=== PATIENT | male | born 1955 | race Two or more races ===

== ENCOUNTER 2017-06-07 00:27 | Emergency (ER) | payer OTHER ==
[~2017-06-07] VITALS: Ht 170.2 cm; Wt 71.2 kg
[2017-06-07 01:04] VITALS: BP 128/83
[2017-06-07] MEDS ORDERED: Lidocaine 2% Visc 15ml soln ORAL ONE (01:30)
[2017-06-07] MEDS ORDERED: Mylanta II UD 30ml ORAL ONE (01:30)
[2017-06-07] MEDS ORDERED: NEXIUM40 MG ORAL (02:01)
--- NOTE | 2017-06-07 02:02 | Emergency Room Report ---
History of Present Illness General Chief Complaint: Dizziness Source: Patient Present Illness HPI This is a 61-year-old male with history HIV. Also history of endoscopy confirm that she goes to disease. He was prescribe Nexium but he said he did not take him. Complaining of epigastric pain. His been a chronic issue for him. He said he went to [facility] before and they gave her morphine shot. He is requesting the same thing here. No nausea no vomiting. No fever or chills. Worse with eating. Denies any other complaint. No chest pain. Allergies: Coded Allergies: DOXYCYCLINE (Verified Allergy, Severe, HIVES, 09/30/11) TETRACYCLINE (Verified Allergy, Severe, HIVES, 09/30/11) AMOXICILLIN (Verified Allergy, Unknown, 08/25/15) SULFAMETHOXAZOLE (Verified Allergy, Unknown, 08/25/15) TRIMETHOPRIM (Verified Allergy, Unknown, 08/25/15) Patient History Past Medical History: see triage record, old chart reviewed, HIV Past Surgical History: other Pertinent Family History: none Social History: Denies: smoking Immunizations: other Reviewed Nursing Documentation: PMH: Agreed, PSxH: Agreed Nursing Documentation-PMH Hx Hypertension: No Hx Pacemaker: No Hx Asthma: No Hx COPD: No Hx Diabetes: No Hx Gastrointestinal Problems: No Hx Dialysis: No Hx Neurological Problems: No Hx Cerebrovascular Accident: No Hx Seizures: No Review of Systems Eye: Denies: eye pain, blurred vision ENT: Denies: ear pain, nose congestion, throat swelling Respiratory: Denies: cough, shortness of breath Cardiovascular: Denies: chest pain, palpitations Gastrointestinal: Reports: abdominal pain, Denies: diarrhea, nausea, vomiting Musculoskeletal: Denies: back pain, joint pain Skin: Denies: rash Neurological: Denies: headache, numbness Endocrine: Denies: increased thirst, increased urine Hematologic/Lymphatic: Denies: easy bruising All Other Systems: negative except mentioned in HPI Physical Exam Vital Signs Date Time Temp Pulse Resp B/P (MAP) Pulse Ox O2 Delivery O2 Flow Rate FiO2 06/07/17 00:28 97.5 78 16 129/89 95 Room Air vitals normal Sp02 EP Interpretation: reviewed, normal General Appearance: well appearing, no apparent distress, alert Head: normocephalic, atraumatic Eyes: bilateral eye PERRL, bilateral eye EOMI ENT: hearing grossly normal, normal pharynx Neck: full range of motion, supple, no meningismus Respiratory: chest non-tender, lungs clear, normal breath sounds Cardiovascular #1: regular rate, rhythm, no murmur Gastrointestinal: normal bowel sounds, non tender, no mass, no organomegaly, no bruit, non-distended Musculoskeletal: back normal, gait/station normal, normal range of motion Psychiatric: mood/affect normal Skin: warm/dry Medical Decision Making Diagnostic Impression: Primary Impression: Gastritis Qualified Codes: K29.00 - Acute gastritis without bleeding ER Course Patient with epigastric abdominal pain secondary to peptic ulcer disease. He has confirm endoscopy of the same before. This is the same presentation. I see no evidence of ACS, PE, dissection to name a few. We'll discharge home. We 'll put him back on Nexium. Last Vital Signs Date Time Temp Pulse Resp B/P (MAP) Pulse Ox O2 Delivery O2 Flow Rate FiO2 06/07/17 01:04 97.5 65 16 128/83 98 Room Air Status: improved Disposition: HOME, SELF-CARE Condition: Stable Scripts Esomeprazole Magnesium (NEXIUM) 40 Mg Capsule. 40 MG ORAL DAILY, #30 CAP Prov: KIA MELLO M.D. 06/07/17 Additional Instructions: Followup with your DrUmair in 7 days. Return if symptom worsen. KIA MELLO M.D. Jun 07, 2017 02:02
[2017-06-07 02:15] VITALS: BP 128/83
== END 2017-06-07 02:15 | disposition home or self-care (01) ==
LOC: EMR 00:47
DX: K29.00 Acute gastritis without bleeding (principal); Z88.2 Allergy status to sulfonamides; Z88.8 Allergy status to other drugs, medicaments and biological substances
CPT/HCPCS: 99284

== ENCOUNTER 2018-04-10 05:26 | Emergency (ER) | payer OTHER ==
[~2018-04-10] VITALS: Ht 167.6 cm; Wt 68.0 kg
[~2018-04-10 05:26] MED LIST: NEXIUM40 MG ORAL
[2018-04-10] MEDS ORDERED: TRUVADA 200 MG1 EAC1 ORAL (05:32)
[2018-04-10] MEDS ORDERED: ISENTRESS25 MG ORAL (05:32)
[2018-04-10 05:37] VITALS: BP 137/90
--- NOTE | 2018-04-10 05:40 | Emergency Room Report ---
History of Present Illness General Chief Complaint: General Complaint Source: Patient, Medical Record, EMS Present Illness HPI Is a 62-year-old male with history of HIV. He is taking his medication compliantly. He presents with palpitation and anxiety. He said this occurred around 3 hours ago after smoking marijuana. He does not know if it was laced with cocaine or methamphetamine. Denies any chest pain. [place] his heart beating fast. No nausea no vomiting. No syncope. Nothing made it better. Nothing made it worse. Never had this problem before. Not suicidal or homicidal. Allergies: Coded Allergies: DOXYCYCLINE (Verified Allergy, Severe, HIVES, 09/30/11) TETRACYCLINE (Verified Allergy, Severe, HIVES, 09/30/11) AMOXICILLIN (Verified Allergy, Unknown, 08/25/15) SULFAMETHOXAZOLE (Verified Allergy, Unknown, 08/25/15) TRIMETHOPRIM (Verified Allergy, Unknown, 08/25/15) Patient History Past Medical History: see triage record, old chart reviewed, HIV Past Surgical History: other Pertinent Family History: none Social History: Reports: smoking, drug use Immunizations: other Reviewed Nursing Documentation: PMH: Agreed; PSxH: Agreed Nursing Documentation-PMH Hx Hypertension: No Hx Pacemaker: No Hx Asthma: No Hx COPD: No Hx Diabetes: No Hx Gastrointestinal Problems: No Hx Dialysis: No Hx Neurological Problems: No Hx Cerebrovascular Accident: No Hx Seizures: No Review of Systems Eye: Denies: eye pain, blurred vision ENT: Denies: ear pain, nose congestion, throat swelling Respiratory: Denies: cough, shortness of breath Cardiovascular: Reports: palpitations; Denies: chest pain Gastrointestinal: Denies: abdominal pain, diarrhea, nausea, vomiting Musculoskeletal: Denies: back pain, joint pain Skin: Denies: rash Neurological: Denies: headache, numbness Endocrine: Denies: increased thirst, increased urine Hematologic/Lymphatic: Denies: easy bruising All Other Systems: negative except mentioned in HPI Physical Exam Vital Signs Date Time Temp Pulse Resp B/P (MAP) Pulse Ox O2 Delivery O2 Flow Rate FiO2 04/10/18 05:28 97.1 155 14 149/93 95 Room Air 97.2 vitals with tachycardia Sp02 EP Interpretation: reviewed, normal General Appearance: well appearing, no apparent distress, alert Head: normocephalic, atraumatic Eyes: bilateral eye PERRL, bilateral eye EOMI ENT: hearing grossly normal, normal pharynx Neck: full range of motion, supple, no meningismus Respiratory: chest non-tender, lungs clear, normal breath sounds Cardiovascular #1: regular rate, rhythm, no murmur, tachycardia Gastrointestinal: normal bowel sounds, non tender, no mass, no organomegaly, no bruit, non-distended Musculoskeletal: back normal, gait/station normal, normal range of motion Psychiatric: anxious Skin: warm/dry Medical Decision Making Diagnostic Impression: Primary Impression: Anxiety Additional Impressions: Palpitations Substance abuse ER Course Patient with anxiety secondary to drug abuse. Heart rate much improved. Patient's much calmer. We'll discharge home if labs unremarkable. labs are unremarkable. Drug screen positive for cocaine and amphetamine. better now. will dc home. EKG Diagnostic Results Rate: tachycardiac Rhythm: NSR ST Segments: no acute changes Rhythm Strip Diag. Results Rhythm Strip Time: 06:22 EP Interpretation: yes Rate: 105 Rhythm: NSR, no PVC's, no ectopy Last Vital Signs Date Time Temp Pulse Resp B/P (MAP) Pulse Ox O2 Delivery O2 Flow Rate FiO2 04/10/18 05:28 97.1 155 14 149/93 95 Room Air 97.2 Status: improved Disposition: HOME, SELF-CARE Condition: Stable Additional Instructions: Abstain from drug use. Follow-up with your doctor in 7 days. Return if worse. KIA MELLO M.D. Apr 10, 2018 05:40
[2018-04-10] MEDS ORDERED: LORazepam Inj 2mg/ml 1ml IV ONE (05:45)
[2018-04-10] MEDS ORDERED: LORazepam Inj 2mg/ml 1ml ONE (05:46)
[2018-04-10 06:07] LABS: BASOPHILS % (AUTO) 0.6 % (0.0-2.0); EOSINOPHILS % (AUTO) 0.1 % (0.0-3.0); HEMATOCRIT 43.1 % (42.0-52.0); HEMOGLOBIN 14.2 G/DL (14.2-18.0); LYMPHOCYTES % (AUTO) 12.6 % (20.0-45.0); MEAN CORPUSCULAR VOLUME 90 FL (80-99); NEUTROPHILS % (AUTO) 81.7 % (45.0-75.0); PLATELET COUNT 203 K/UL (150-450); RED BLOOD COUNT 4.79 M/UL (4.70-6.10); RED CELL DISTRIBUTION WIDTH 11.3 % (11.6-14.8); WHITE BLOOD COUNT 8.6 K/UL (4.8-10.8)
[2018-04-10 06:22] LABS: ANION GAP 10 mmol/L (5-15); APPEARANCE,URINE CLEAR; BILIRUBIN, URINE NEGATIVE (NEGATIVE); BLOOD UREA NITROGEN 16 mg/dL (7-18); CARBON DIOXIDE 26 MMOL/L (21-32); CHLORIDE 106 MMOL/L (98-107); CREATININE 0.9 MG/DL (0.55-1.30); GLUCOSE, URINE (UA) NEGATIVE (NEGATIVE); KETONES,URINE NEGATIVE (NEGATIVE); LEUKOCYTE ESTERASE ,URINE NEGATIVE (NEGATIVE); NITRITE,URINE NEGATIVE (NEGATIVE); PH,URINE 6 (4.5-8.0); POTASSIUM 3.7 MMOL/L (3.5-5.1); PROTEIN,URINE 1+ (NEGATIVE); SODIUM 142 MMOL/L (136-145); UROBILINOGEN,URINE NORMAL MG/DL (0.0-1.0)
[2018-04-10 06:28] LABS: COLOR,URINE YELLOW
[2018-04-10 06:37] LABS: CKMB 4.4 NG/ML (0.0-3.6); CREATINE KINASE 607 U/L (26-308)
[2018-04-10 06:44] VITALS: BP 134/83
[2018-04-10 06:46] VITALS: BP 134/83
== END 2018-04-10 06:47 | disposition home or self-care (01) ==
LOC: EDBD 05:26 → EMR 05:39
DX: F41.9 Anxiety disorder, unspecified (principal); R00.2 Palpitations; F12.10 Cannabis abuse, uncomplicated
CPT/HCPCS: 36415; 80048; 80307; 81001; 81003; 82550; 82553; 84484; 85025; 93005; 96361; 96374; 99284

== ENCOUNTER 2018-08-18 23:14 | Emergency (ER) | payer OTHER ==
[~2018-08-18] VITALS: Ht 170.2 cm; Wt 65.8 kg
[~2018-08-18 23:14] MED LIST changes: +ISENTRESS25 MG ORAL; +TRUVADA 200 MG1 EAC1 ORAL
[2018-08-18 23:30] VITALS: BP 132/78
[2018-08-18] MEDS ORDERED: Morphine Sulfate 4mg/ml Inj (IV/IM USE ONLY) IVP ONE (23:45)
[2018-08-18] MEDS ORDERED: Ketorolac 30mg Inj IV ONE (23:45)
[2018-08-19 00:13] LABS: APPEARANCE,URINE SLIGHTLY CLOUDY; BILIRUBIN, URINE NEGATIVE (NEGATIVE); COLOR,URINE PALE YELLOW; GLUCOSE, URINE (UA) NEGATIVE (NEGATIVE); HEMATOCRIT 37.3 % (42.0-52.0); KETONES,URINE NEGATIVE (NEGATIVE); LEUKOCYTE ESTERASE ,URINE 2+ (NEGATIVE); MEAN CORPUSCULAR VOLUME 87 FL (80-99); NITRITE,URINE NEGATIVE (NEGATIVE); PH,URINE 7 (4.5-8.0); PLATELET COUNT 232 K/UL (150-450); PROTEIN,URINE NEGATIVE (NEGATIVE); RED BLOOD COUNT 4.29 M/UL (4.70-6.10); RED CELL DISTRIBUTION WIDTH 11.4 % (11.6-14.8); UROBILINOGEN,URINE NORMAL MG/DL (0.0-1.0); WHITE BLOOD COUNT 18.3 K/UL (4.8-10.8)
[2018-08-19] MEDS ORDERED: Metoclopramide 10mg/2ml Inj IVP ONE (00:15)
[2018-08-19 00:22] LABS: ANION GAP 8 mmol/L (5-15); BLOOD UREA NITROGEN 18 mg/dL (7-18); CALCIUM 8.9 MG/DL (8.5-10.1); CARBON DIOXIDE 28 MMOL/L (21-32); CHLORIDE 103 MMOL/L (98-107); CREATININE 0.9 MG/DL (0.55-1.30); POTASSIUM 4.5 MMOL/L (3.5-5.1); SODIUM 138 MMOL/L (136-145)
[2018-08-19 00:26] LABS: ALANINE AMINOTRANSFERASE 51 U/L (12-78); ALBUMIN 3.4 G/DL (3.4-5.0); ALBUMIN/GLOBULIN RATIO 0.7 (1.0-2.7); ALKALINE PHOSPHATASE 61 U/L (46-116); ASPARTATE AMINO TRANSFERASE 38 U/L (15-37); BILIRUBIN,TOTAL 0.8 MG/DL (0.2-1.0)
--- NOTE | 2018-08-19 01:41 | Emergency Room Report ---
History of Present Illness General Chief Complaint: Male Urogenital Problems Source: Patient Present Illness HPI 63-year-old male presents ED for evaluation. Coming in with vomiting and back pain. States that seen at [facility] 2 weeks ago. Was discharged with antibiotics for a urinary tract infection. States he was prescribed Keflex and completed the prescription but states his symptoms not improve. Continues to have back pain and vomiting. Pain is throbbing, 8 out of 10, nonradiating. Denies chest pain or shortness of breath. Denies fevers or chills. No other aggravating relieving factors. Denies any other associated symptoms Allergies: Coded Allergies: DOXYCYCLINE (Verified Allergy, Severe, HIVES, 09/30/11) TETRACYCLINE (Verified Allergy, Severe, HIVES, 09/30/11) AMOXICILLIN (Verified Allergy, Unknown, 08/25/15) SULFAMETHOXAZOLE (Verified Allergy, Unknown, 08/25/15) TRIMETHOPRIM (Verified Allergy, Unknown, 08/25/15) Patient History Past Medical History: none Past Surgical History: none Pertinent Family History: none Social History: Denies: smoking, alcohol use, drug use Immunizations: UTD Reviewed Nursing Documentation: PMH: Agreed; PSxH: Agreed Nursing Documentation-PMH Hx Hypertension: No Hx Pacemaker: No Hx Asthma: No Hx COPD: No Hx Diabetes: No Hx Cancer: Yes - Kaposi's Sarcoma Hx Gastrointestinal Problems: No Hx Dialysis: No Hx Neurological Problems: Yes - arthritis Hx Cerebrovascular Accident: No Hx Seizures: No Review of Systems All Other Systems: negative except mentioned in HPI Physical Exam Vital Signs Date Time Temp Pulse Resp B/P (MAP) Pulse Ox O2 Delivery O2 Flow Rate FiO2 08/18/18 23:18 99.7 126 16 130/77 95 Room Air Sp02 EP Interpretation: reviewed, normal General Appearance: no apparent distress, alert, GCS 15, non-toxic Head: normocephalic, atraumatic Eyes: bilateral eye normal inspection, bilateral eye PERRL ENT: hearing grossly normal, normal pharynx, no angioedema, normal voice Neck: full range of motion, supple/symm/no masses Respiratory: chest non-tender, lungs clear, normal breath sounds, speaking full sentences Cardiovascular #1: no edema, tachycardia Cardiovascular #2: 2+ carotid (R), 2+ carotid (L), 2+ radial (R), 2+ radial (L) , 2+ dorsalis pedis (R), 2+ dorsalis pedis (L) Gastrointestinal: normal bowel sounds, non tender, soft, non-distended, no guarding, no rebound Rectal: deferred Genitourinary: normal inspection, CVA tenderness (R), CVA tenderness (L) Musculoskeletal: back normal, gait/station normal, normal range of motion, non- tender Neurologic: alert, oriented x3, responsive, motor strength/tone normal, sensory intact, speech normal Psychiatric: judgement/insight normal, memory normal, mood/affect normal, no suicidal/homicidal ideation Reflexes: 3+ bicep (R), 3+ bicep (L), 3+ tricep (R), 3+ tricep (L), 3+ knee (R) , 3+ knee (L) Skin: normal color, no rash, warm/dry, well hydrated Lymphatic: no adenopathy Procedures Critical Care Time Critical Care Time i. I feel this is a highly complex case requiring extensive working including EKG/Rhythm strip, Xray/CT/US, Blood/urine lab work, repeat exams while in ED, and administration of strong opiates/narcotics for pain control, admission to hospital or close patient follow up. Total time: 30 min bedside evaluation and treatment excludes procedures (EKG). Reason for critical care: tachycardia, pyelonephritis Possible complications: hypotension, hypertension, VT, shock, arrhythmias, metabolic acidosis, end organ damage, respiratory failure. Interventions: labs, IVFS, antibiotics. discussion of admission with hospitalist Course: Patient presenting with pain, vomiting. Recent history of kidney infection and on antibiotics. Significant leukocytosis. Tachycardic. UA grossly positive. Given IV fluids. Given pain meds. Given broad-spectrum antibiotics. Tachycardia improved with IV hydration and medications Consultations: nursing staff, EMS, family Performed by: Dr Barfield Tolerated well condition = serious j. because of unstable vital signs this patient had a condition that could potentially threaten life or limb. I feel this is a critical patient who required my full attention while patient was considered critical. Total Critical Care Time excluding procedures was greater than 35 minutes Medical Decision Making Diagnostic Impression: Primary Impression: Pyelonephritis ER Course Hospital Course 63year-old male presents to ED complaining of back pain, vomiting Differential diagnoses include: UTI, cystitis, pyelonephritis Clinical course Patient placed on stretcher. After initial history and physical I ordered UA, labs, IV fluids, toradol, morphine labs - marked leukocytosis noted, hb/hematocrit stable, electrolytes okay, UA grossly positive findings consistent with pyelonephritis. Patient failed outpatient therapy. Given Toradol, morphine, IV fluids. Tachycardia resolved. Given broad- spectrum antibiotics. Because of insurance patient will be transferred Diagnosis - pyelonephritis transferred in serious condition Labs Test 08/19/18 00:02 White Blood Count 18.3 K/UL (4.8-10.8) Red Blood Count 4.29 M/UL (4.70-6.10) Hemoglobin 13.0 G/DL (14.2-18.0) Hematocrit 37.3 % (42.0-52.0) Mean Corpuscular Volume 87 FL (80-99) Mean Corpuscular Hemoglobin 30.2 PG (27.0-31.0) Mean Corpuscular Hemoglobin Concent 34.7 G/DL (32.0-36.0) Red Cell Distribution Width 11.4 % (11.6-14.8) Platelet Count 232 K/UL (150-450) Mean Platelet Volume 8.1 FL (6.5-10.1) Neutrophils (%) (Auto) % (45.0-75.0) Lymphocytes (%) (Auto) % (20.0-45.0) Monocytes (%) (Auto) % (1.0-10.0) Eosinophils (%) (Auto) % (0.0-3.0) Basophils (%) (Auto) % (0.0-2.0) Differential Total Cells Counted 100 Neutrophils % (Manual) 84 % (45-75) Lymphocytes % (Manual) 11 % (20-45) Monocytes % (Manual) 3 % (1-10) Eosinophils % (Manual) 0 % (0-3) Basophils % (Manual) 2 % (0-2) Band Neutrophils 0 % (0-8) Platelet Estimate Adequate Platelet Morphology Normal Urine Color Pale yellow Urine Appearance Slightly cloudy Urine pH 7 (4.5-8.0) Urine Specific [place] 1.005 (1.005-1.035) Urine Protein Negative (NEGATIVE) Urine Glucose (UA) Negative (NEGATIVE) Urine Ketones Negative (NEGATIVE) Urine Blood 1+ (NEGATIVE) Urine Nitrite Negative (NEGATIVE) Urine Bilirubin Negative (NEGATIVE) Urine Urobilinogen Normal MG/DL (0.0-1.0) Urine Leukocyte Esterase 2+ (NEGATIVE) Urine RBC 2-4 /HPF (0 - 0) Urine WBC 20-30 /HPF (0 - 0) Urine Squamous Epithelial Cells Occasional /LPF Urine Bacteria Occasional /HPF (NONE) Sodium Level 138 MMOL/L (136-145) Potassium Level 4.5 MMOL/L (3.5-5.1) Chloride Level 103 MMOL/L (98-107) Carbon Dioxide Level 28 MMOL/L (21-32) Anion Gap 8 mmol/L (5-15) Blood Urea Nitrogen 18 mg/dL (7-18) Creatinine 0.9 MG/DL (0.55-1.30) Estimat Glomerular Filtration Rate > 60 mL/min (>60) Glucose Level 109 MG/DL (74-106) Calcium Level 8.9 MG/DL (8.5-10.1) Total Bilirubin 0.8 MG/DL (0.2-1.0) Aspartate Amino Transf (AST/SGOT) 38 U/L (15-37) Alanine Aminotransferase (ALT/SGPT) 51 U/L (12-78) Alkaline Phosphatase 61 U/L (46-116) Total Protein 8.0 G/DL (6.4-8.2) Albumin 3.4 G/DL (3.4-5.0) Globulin 4.6 g/dL Albumin/Globulin Ratio 0.7 (1.0-2.7) Lipase 58 U/L (73-393) Last Vital Signs Date Time Temp Pulse Resp B/P (MAP) Pulse Ox O2 Delivery O2 Flow Rate FiO2 08/18/18 23:18 99.7 126 16 130/77 95 Room Air Status: improved Disposition: XFER SHT-TRM HOSP Condition: Serious Referrals: [facility] (PCP) Brayden Barfield MD Aug 19, 2018 01:41
[2018-08-19 02:25] VITALS: BP 134/76
== END 2018-08-19 02:25 | disposition short-term general hospital (02) ==
LOC: EMR 23:58 → EDBEDREQ 08-19 00:32 → EMR 08-19 02:25
DX: N12 Tubulo-interstitial nephritis, not specified as acute or chronic (principal); R11.10 Vomiting, unspecified; Z88.0 Allergy status to penicillin; Z88.2 Allergy status to sulfonamides
CPT/HCPCS: 36415; 80053; 81003; 83690; 85007; 85025; 87086; 87181; 96361; 96365; 96375; 99291; J1885; J1956; J2270; J2405; J2765; S0028

== ENCOUNTER 2020-07-10 12:35 | Outpatient (CLI) | payer MEDICAID ==
[~2020-07-10 12:35] MED LIST changes: +ASPIRIN EC81 MG ORAL; +ATARAX25 MG ORAL; +BIKTARVY 50-201 EACH PO; +CELEBREX200 MG ORAL; +DOCUSATE SODIU100 MG ORAL; +FLUTICASONE PRO16 G1 NASAL; +HYDROXYZINE PA100 MG ORAL; +MULTIVITAMINS1 EAC2 ORAL; +PANTOPRAZOLE SO40 MG ORAL; +TERAZOSIN HCL1 MG ORAL; +TRAMADOL HCL50 MG ORAL; +VITAMIN D ORAL; +ZYRTEC10 MG ORAL
--- NOTE | 2020-07-10 13:19 | General Progress Note ---
Subjective ROS Limited/Unobtainable: Yes Allergies: Coded Allergies: DOXYCYCLINE (Verified Allergy, Severe, HIVES, 09/30/11) TETRACYCLINE (Verified Allergy, Severe, HIVES, 09/30/11) AMOXICILLIN (Verified Allergy, Unknown, 08/25/15) SULFAMETHOXAZOLE (Verified Allergy, Unknown, 08/25/15) Objective General Appearance: alert EENT: normal ENT inspection Neck: supple Cardiovascular: normal rate Respiratory/Chest: lungs clear Abdomen: normal bowel sounds, non tender, soft Extremities: non-tender Assessment/Plan Assessment/Plan: 1. History of colon polyps. 2. Hypertension. 3. Peptic ulcer disease. 4. BPH. 5. GERD. 6. chronic constipation colace miralax dulcolax plan colonoscopy Lazarus Chino MD Jul 10, 2020 13:19
== END 2020-07-10 14:35 | disposition home or self-care (01) ==
LOC: PAN 12:35
DX: K21.9 Gastro-esophageal reflux disease without esophagitis (principal); K59.09 Other constipation; Z87.11 Personal history of peptic ulcer disease; I10 Essential (primary) hypertension; Z86.010 Personal history of colon polyps; Z79.899 Other long term (current) drug therapy; Z88.2 Allergy status to sulfonamides; Z88.8 Allergy status to other drugs, medicaments and biological substances
CPT/HCPCS: 99212

== ENCOUNTER 2020-08-01 00:11 | Emergency (ER) | payer MEDICAID ==
[~2020-08-01] VITALS: Ht 170.2 cm; Wt 68.0 kg
[2020-08-01 00:25] VITALS: BP 147/87
--- NOTE | 2020-08-01 00:25 | NUR ---
ED Nurse Note: Patient walked into ED c/o right sided arm pain onset for the past 12 hours now, patient states that he received an endoscopy and colonoscopy in the afternoon, they placed an IV catether on his right arm and has been complaining of pain. patient is alert and oriented x4. denies any numbness or tingling of said extremity, will continue to monitor
[2020-08-01] MEDS ORDERED: ULTRAM50 MG ORAL (00:36)
--- NOTE | 2020-08-01 00:36 | Emergency Room Report ---
History of Present Illness General Chief Complaint: Pain Source: Patient, Medical Record Present Illness HPI This is a 65-year-old male with a history of HIV and GI problem. He presents with chief plaint of right arm pain. He had endoscopy and colonoscopy done today. He has an IV in his right thumb today. Tonight he developed arm pain on the radial aspect from the wrist to the elbow area. He said this area when he had his IV. No swelling. Worse with palpation. Worse with movement. No fever chills but no nausea no vomiting. He was concerned about blood clot and so he came in. Allergies: Coded Allergies: DOXYCYCLINE (Verified Allergy, Severe, HIVES, 09/30/11) TETRACYCLINE (Verified Allergy, Severe, HIVES, 09/30/11) AMOXICILLIN (Verified Allergy, Unknown, 08/25/15) SULFAMETHOXAZOLE (Verified Allergy, Unknown, 08/25/15) COVID-19 Screening Contact w/high risk pt: No Experienced COVID-19 symptoms?: No COVID-19 Testing performed HORSER UP: Yes - 07/31/20 COVID-19 Screening: Negative COVID-19 COVID-19 Testing Source: [facility] Patient History Past Medical History: see triage record, old chart reviewed Past Surgical History: other Pertinent Family History: none Social History: Denies: smoking Immunizations: other Reviewed Nursing Documentation: PMH: Agreed; PSxH: Agreed Nursing Documentation-PMH Past Medical History: No History, Except For Hx Cardiac Problems: No Hx Hypertension: No Hx Pacemaker: No Hx Asthma: No Hx COPD: No Hx Diabetes: No Hx Cancer: No Hx Gastrointestinal Problems: Yes Hx Dialysis: No Hx Neurological Problems: No Hx Cerebrovascular Accident: No Hx Seizures: No Review of Systems Eye: Denies: eye pain, blurred vision ENT: Denies: ear pain, nose congestion, throat swelling Respiratory: Denies: cough, shortness of breath Cardiovascular: Denies: chest pain, palpitations Gastrointestinal: Denies: abdominal pain, diarrhea, nausea, vomiting Musculoskeletal: Reports: muscle pain; Denies: back pain, joint pain Skin: Denies: rash Neurological: Denies: headache, numbness Endocrine: Denies: increased thirst, increased urine Hematologic/Lymphatic: Denies: easy bruising All Other Systems: negative except mentioned in HPI Physical Exam Vital Signs Date Time Temp Pulse Resp B/P (MAP) Pulse Ox O2 Delivery O2 Flow Rate FiO2 08/01/20 00:19 97.9 66 18 147/87 (107) 95 Room Air Vitals unremarkable Sp02 EP Interpretation: reviewed, normal General Appearance: well appearing, no apparent distress, alert Head: normocephalic, atraumatic Eyes: bilateral eye PERRL, bilateral eye EOMI ENT: hearing grossly normal, normal pharynx Neck: full range of motion, supple, no meningismus Respiratory: chest non-tender, lungs clear, normal breath sounds Cardiovascular #1: regular rate, rhythm, no murmur Gastrointestinal: normal bowel sounds, non tender, no mass, no organomegaly, no bruit, non-distended Musculoskeletal: back normal, normal range of motion, gait/station normal, other - Right forearm: He has tenderness on the radial aspect of the right fo rearm from the wrist to the proximal forearm. I see no redness or edema. I do not palpate any lesion or mass. Psychiatric: mood/affect normal Medical Decision Making Diagnostic Impression: Primary Impression: Phlebitis ER Course This patient presents with a phlebitis of his vein. No evidence of DVT. Most likely superficial in nature. no evidence of infection. Will discharge home. Last Vital Signs Date Time Temp Pulse Resp B/P (MAP) Pulse Ox O2 Delivery O2 Flow Rate FiO2 08/01/20 00:25 97.9 86 18 147/87 95 Room Air Status: improved Disposition: HOME, SELF-CARE Condition: Stable Scripts Tramadol Hcl (ULTRAM*) 50 Mg Tablet 50 MG ORAL Q6H, #15 TAB 0 Refills Prov: Tenzin Espinosa MD 08/01/20 Referrals: [facility] (PCP) Additional Instructions: Warm compress to the forearm. Follow-up with your doctor in 7 days. Return if worse. Tenzin Espinosa MD Aug 01, 2020 00:36
[2020-08-01 00:41] VITALS: BP 142/80
[2020-08-01] MEDS ORDERED: traMADol 50mg tab ORAL ONE (00:45)
== END 2020-08-01 00:45 | disposition home or self-care (01) ==
LOC: EMR 00:30
DX: I80.9 Phlebitis and thrombophlebitis of unspecified site (principal); Z88.2 Allergy status to sulfonamides; B20 Human immunodeficiency virus [HIV] disease
CPT/HCPCS: 99282

== ENCOUNTER 2020-08-18 14:21 | Outpatient (CLI) | payer OTHER ==
[~2020-08-18 14:21] MED LIST changes: +ULTRAM50 MG ORAL
[2020-08-18 14:32] VITALS: BP 125/82
[2020-08-18] MEDS ORDERED: DOVATO 50-3001 EACH PO (14:35)
== END 2020-08-18 16:21 | disposition home or self-care (01) ==
LOC: PAN 14:21
DX: R10.9 Unspecified abdominal pain (principal)
CPT/HCPCS: 99212